=== PATIENT | female | born 1995 | race American Indian/Alaskan Native ===

== ENCOUNTER 2016-06-08 21:39 | Emergency (ER) | payer OTHER ==
[2016-06-08 22:22] VITALS: BP 111/77
[2016-06-08 23:29] LABS: ADD MANUAL DIFF? NO
[2016-06-08 23:34] LABS: BASO # 0.02 K/mm3 (0.0-2.0); BASO % 0.2 % (0.0-3.0); EOS # 0.5 (0.0-0.7); EOS % 4.2 % (1.5-5.0); GRAN # 7.91 (1.4-6.5); GRAN % 69.9 % (50.0-68.0); HEMATOCRIT 36.1 % (36.0-48.0); LYMPH # 2.3 (1.2-3.4); LYMPH % 20.1 % (22.0-35.0); MEAN CELL VOLUME 69.3 fL (80.0-105.0); MEAN CORPUSCULAR HEMOGLOBIN 23.6 pg (25.0-35.0); MEAN CORPUSCULAR HGB CONC 34.1 g/dl (31.0-37.0); MONO # 0.6 (0.1-0.6); MONO % 5.6 % (1.0-6.0); PLATELET COUNT 222 10^3/uL (120.0-450.0); RED CELL DISTRIBUTION WIDTH 15.7 % (11.5-14.5); WHITE BLOOD COUNT 11.3 10^3/ul (4.5-11.0)
--- NOTE | 2016-06-08 23:39 | ED PDOC ---
Arrival/HPI - General Chief Complaint: Shortness Of Breath Time Seen by Provider: 06/08/16 22:48 Historian: Patient - History of Present Illness Narrative History of Present Illness (Text): 06/08/16 23:34 Zafar Lombardi is a 21 year old, 21 wk first time female, who presents to the emergency department complaining of 2 day duration of intermittent chest pain and shortness of breath. Describes quality as sharp pain to the chest which is worsened with deep inspirations. States that she is currently asymptomatic. Denies fever, chills, headache, dizziness, nausea, vomiting, diarrhea, vaginal bleeding, urinary symptoms, or any other complaints at this time. Time/Duration: < week (2 days ) Symptom Onset: Gradual Symptom Course: Intermittent Severity Level: Mild Activities at Onset: Light Past Medical History - Provider Review Nursing Documentation Reviewed: Yes - Infectious Disease Hx of Infectious Diseases: None - Psychiatric Hx Substance Use: No Family/Social History - Physician Review Nursing Documentation Reviewed: Yes Family/Social History: No Known Family HX Smoking Status: Never Smoked Hx Alcohol Use: No Hx Substance Use: No Allergies/Home Meds Allergies/Adverse Reactions: Allergies No Known Allergies Allergy (Verified 06/08/16 23:03) Review of Systems - Physician Review All systems were reviewed & negative as marked: Yes - Review of Systems Constitutional: Normal. absent: Fatigue, Fevers Respiratory: SOB. absent: Cough, Sputum Cardiovascular: Chest Pain. absent: Palpitations Gastrointestinal: Normal. absent: Abdominal Pain, Diarrhea, Nausea, Vomiting Skin: Normal Neurological: Normal. absent: Headache, Dizziness Psychiatric: Normal Physical Exam Vital Signs Reviewed: Yes Vital Signs Temp Pulse Resp BP Pulse Ox 06/09/16 02:30 16 98 06/09/16 01:34 98.9 F 75 16 97 06/08/16 23:48 99.0 F 70 18 98 06/08/16 22:15 18 06/08/16 22:14 99 F 68 17 111/77 100 Temperature: Afebrile Blood Pressure: Normal Pulse: Regular Respiratory Rate: Normal Appearance: Positive for: Well-Appearing, Non-Toxic, Comfortable Pain Distress: None Mental Status: Positive for: Alert and Oriented X 3 - Systems Exam Head: Present: Atraumatic, Normocephalic Pupils: Present: PERRL Conjunctiva: Present: Normal Respiratory/Chest: Present: Clear to Auscultation, Good Air Exchange. No: Respiratory Distress, Accessory Muscle Use Cardiovascular: Present: Regular Rate and Rhythm, Normal S1, S2. No: Murmurs Abdomen: Present: Normal Bowel Sounds. No: Tenderness, Distention, Peritoneal Signs Upper Extremity: Present: Normal Inspection. No: Cyanosis, Edema Lower Extremity: Present: Normal Inspection. No: Edema Neurological: Present: GCS=15, CN II-XII Intact, Speech Normal Skin: Present: Warm, Dry, Normal Color. No: Rashes Psychiatric: Present: Alert, Oriented x 3, Normal Insight, Normal Concentration Medical Decision Making ED Course and Treatment: 06/08/16 23:41 Impression: A 21 year old, 21 wk female who presents to the emergency department complaining of intermittent episodes of chest pain associated with SOB. Plan: -- EKG -- Labs, cardiac enzymes -- Urinalysis -- US gall bladder Progress Notes: 06/09/16 03:41 EKG reviewed by me: NSR @ 73 with sinus arrhythmia. Normal [place]. Normal interval. US abdomen results reviewed: FINDINGS: Liver: There are no focal liver lesions present. No intrahepatic bile duct dilation. Gallbladder: Multiple calcified gallstones are present. Sonographic Billy sign is negative. No gallbladder wall thickening or pericholecystic fluid. Common bile duct: Common bile duct is normal in caliber. No stones. No dilation. Pancreas: The pancreas is normal. Right kidney: The right kidney is normal. No stones. No hydronephrosis. Aorta: Visualized aorta and IVC appear unremarkable. IMPRESSION: 1. Cholelithiasis without evidence for acute cholecystitis. 2. No acute pathology identified in the right upper quadrant. On reevaluation the patient feels better and is in no acute distress. i feel pt symptoms from gallstones wells criteria 0 for pe I have discussed the results and plan with the patient, who expresses understanding. Patient given the opportunity to ask question, all questions were answered and there is agreement with the plan to discharge the patient home. Patient is stable for discharge. Patient was instructed to follow up with physician/clinic in 1-2 days or return if symptoms persist/worsen or new concerning symptoms arise. 06/10/16 19:05 - Lab Interpretations Lab Results: 06/08/16 23:12 06/08/16 23:12 Lab Results 06/08/16 23:12: WBC 11.3 H, RBC 5.21, Hgb 12.3, Hct 36.1, MCV 69.3 L, MCH 23.6 L , MCHC 34.1, RDW 15.7 H, Plt Count 222, Gran % 69.9 H, Lymph % (Auto) 20.1 L, [place] % (Auto) 5.6, Eos % (Auto) 4.2, Baso % (Auto) 0.2, Gran # 7.91 H, Lymph # 2.3, [place] # 0.6, Eos # 0.5, Baso # 0.02, PT 10.0, INR 0.93, APTT 32.3 H, D-Dimer , Quantitative 0.97 H, Sodium 134, Potassium 4.2, Chloride 100, Carbon Dioxide 25, Anion Gap 13, BUN 3 L, Creatinine 0.6, Est GFR ( Amer) > 60, Est GFR (Non-Af Amer) > 60, Random Glucose 95, Calcium 10.2, Magnesium 1.9, Total Bilirubin 2.3 H, AST 100 H, ALT 152 H, Alkaline Phosphatase 167 H, Lactate Dehydrogenase 548, Total Creatine Kinase 79, Troponin I < 0.01, Total Protein 8.7 H, Albumin 4.2, Globulin 4.4, Albumin/Globulin Ratio 1.0 L, Urine Color Yellow, Urine Appearance Sl cloudy, Urine pH 6.5, Ur Specific [place] 1.020, Urine Protein Negative, Urine Glucose (UA) Negative, Urine Ketones Negative, Urine Blood Trace-intact H, Urine Nitrate Negative, Urine Bilirubin Moderate H, Urine Urobilinogen 1.0 H, Ur Leukocyte Esterase Negative, Urine RBC 0 - 2, Urine WBC 0 - 2, Ur Epithelial Cells 3 - 4, Urine Bacteria Few I have reviewed the lab results: Yes - RAD Interpretation Radiology Orders: 06/08/16 23:54 GALL BLADDER [US] Stat Dental Hygiene Instructor: Radiologist - EKG Interpretation Interpreted by ED Physician: Yes Type: 12 lead EKG Wells Criteria for PE - Wells Criteria for Pulmonary Embolism Clinical Signs and Symptoms of DVT: No P.E is #1 Diagnosis, or Equally Likely: No Heart Rate >100: No Immobilization at least 3 days;Surgery previous 4 weeks: No Previous, objectively diagnosed PE or DVT: No Hemoptysis: No Malignancy w/treatment within 6 months, or palliative: No Total Score: 0 - Scribe Statement The provider has reviewed the documentation as recorded by the Javieribe Mookie Veloz Provider Attestation: All medical record entries made by the Javieribaston were at my direction and personally dictated by me. I have reviewed the chart and agree that the record accurately reflects my personal performance of the history, physical exam, medical decision making, and the department course for this patient. I have also personally directed, reviewed, and agree with the discharge instructions and disposition. Disposition/Present on Arrival - Present on Arrival Any Indicators Present on Arrival: No History of DVT/PE: No History of Uncontrolled Diabetes: No Urinary Catheter: No History of Decub. Ulcer: No History Surgical Site Infection Following: None - Disposition Have Diagnosis and Disposition been Completed?: Yes Diagnosis: Cholelithiasis affecting in second trimester, antepartum Disposition: HOME/ ROUTINE Disposition Time: 02:30 Condition: GOOD Discharge Instructions (ExitCare): Gallstones (ED)
[2016-06-08 23:41] LABS: PH,URINE 6.5 (4.7-8.0); URINE BILIRUBIN MODERATE (NEGATIVE); URINE BLOOD TRACE-INTACT (NEGATIVE); URINE GLUCOSE (UA) NEGATIVE (NEGATIVE); URINE KETONE NEGATIVE (NEGATIVE); URINE LEUKOCYTE ESTERASE NEGATIVE Leu/uL (NEGATIVE); URINE PROTEIN NEGATIVE mg/dL (<30 mg/dL)
[2016-06-08 23:44] LABS: ALKALINE PHOSPHATASE 167 U/L (38-133); ALT/SGPT 152 U/L (7-56); AST/SGOT 100 U/L (15-39); BILIRUBIN,TOTAL 2.3 mg/dL (0.2-1.3); BLOOD UREA NITROGEN 3 mg/dL (7-21); CALCIUM 10.2 mg/dL (8.4-10.5); CARBON DIOXIDE 25 mmol/L (21-33); CHLORIDE 100 mmol/L (98-107); GFR AFRICAN-AMERICAN > 60; GLUCOSE,RANDOM 95 mg/dL (70-110); MAGNESIUM 1.9 mg/dL (1.7-2.2); POTASSIUM 4.2 mmol/L (3.6-5.0); SODIUM 134 mmol/L (132-148); TOTAL PROTEIN 8.7 g/dL (5.8-8.3)
[2016-06-08 23:45] LABS: URINE APPEARANCE SL CLOUDY (CLEAR); URINE COLOR YELLOW (YELLOW)
[2016-06-08 23:49] LABS: INR 0.93 (0.93-1.08); PARTIAL THROMBOPLASTIN TIME 32.3 Seconds (23.7-30.8)
[2016-06-08 23:51] LABS: D DIMER 0.97 mg/L FEU (0-0.50)
[2016-06-08 23:57] LABS: TROPONIN I < 0.01 ng/mL
[2016-06-09 00:05] LABS: URINE BACTERIA FEW (NEG); URINE RBC 0 - 2 /hpf (0-2); URINE WBC 0 - 2 /hpf (0-6)
[2016-06-09 01:34] VITALS: PULSE 75; RESP 16; TEMP 98.9
--- NOTE | 2016-06-09 01:53 | US ---
EXAM: US Abdomen Limited, Right Upper Quadrant CLINICAL HISTORY: 21 years old, female; Pain; Abdominal pain; Other: Ruq; Additional info: Abd pain TECHNIQUE: Real-time ultrasound of the right upper quadrant with image documentation. COMPARISON: No relevant prior studies available. FINDINGS: Liver: There are no focal liver lesions present. No intrahepatic bile duct dilation. Gallbladder: Multiple calcified gallstones are present. Sonographic Billy sign is negative. No gallbladder wall thickening or pericholecystic fluid. Common bile duct: Common bile duct is normal in caliber. No stones. No dilation. Pancreas: The pancreas is normal. Right kidney: The right kidney is normal. No stones. No hydronephrosis. Aorta: Visualized aorta and IVC appear unremarkable. IMPRESSION: 1. Cholelithiasis without evidence for acute cholecystitis. 2. No acute pathology identified in the right upper quadrant.
[2016-06-09 02:31] VITALS: O2SAT 98
--- NOTE | 2016-06-09 11:29 | CARD ---
APPROVED REPORT EKG Measurement Heart [id number] <Conclusion> Normal sinus rhythm with sinus arrhythmia Normal ECG
== END 2016-06-09 02:31 | disposition home or self-care (01) ==
LOC: ED 21:39
DX: O99.612 Diseases of the digestive system complicating pregnancy, second trimester (principal); K80.20 Calculus of gallbladder without cholecystitis without obstruction; Z3A.21 21 weeks gestation of pregnancy